=== PATIENT | male | born 1965 | race African-American/Black ===

== ENCOUNTER 2016-11-02 12:13 | Emergency (ER) | payer OTHER ==
[2016-11-02 12:22] VITALS: BP 116/75
[2016-11-02] MEDS ORDERED: TORADOL IM ONE (13:08)
[2016-11-02] MEDS ORDERED: BOOSTRIX IM ONE (13:11)
--- NOTE | 2016-11-02 13:59 | Cat Scan Report ---
CT scan of head without IV contrast: History: Injury to the head. Findings: Ventricles are normal in size and midline location. No evidence of acute ischemia, hemorrhage or mass. No extra-axial fluid collection. Normal brainstem and cerebellum. Normal sinuses and mastoid air cells. Impression: No acute intracranial abnormality.
--- NOTE | 2016-11-02 14:23 | Emergency Department Report ---
ED Head Injury/Laceration HPI - HPI Occurred When: Today Mechanism: Direct Blow Location: Parietal Pain: Moderate Tetanus Status: Not up to Date (given today) Symptoms: Loss of Consciousness: No, Nausea: No, Blurred Vision: No, Unusual Behavior: No, Headache: Yes, Swelling: No, Bruising: No, Break in Skin: Yes, Bleeding: Yes (mild bleeding) Other History: 51 y/o M presents with head injury about 1 hour ago. Pt states that he was watering the ground and he got up quickly and hit his head on a metal post. Pt is not UTD with his tetanus. Pt reports to a mild 5/10 in severity head pain/headache, denies any LOC, blurried vision, nausea, vomiting, chest pain, SOB. Pt has not tried anything for the symptoms at this time. Pt is otherwise healthy and only takes one baby aspirin daily. NKDA. ED General PMH - Past Medical History General Medical History: no medical history Surgical History: noncontributory, other (no no blood thinners per patient) - Family History Significant Family History: no pertinent family hx - Social History Smoking Status: Never Smoker ED Review of Systems ROS: Stated complaint: LACERTION ON TOP OF HEAD. Other details as noted in HPI Constitutional: denies: chills, fever Eyes: denies: eye pain, eye discharge, vision change ENT: denies: ear pain, throat pain Respiratory: denies: cough, shortness of breath, wheezing Cardiovascular: denies: chest pain, palpitations Skin: other (1.5 in laceration noted at the top of the head, mild bleeding at the site) Neurological: headache. denies: weakness, numbness, paresthesias, confusion, abnormal gait Head Inj w/lac Physical Exam - Exam General: Vital signs noted. No distress. Alert and acting appropriately. Head: Yes PERRL, No Hemotympanum, No Hematoma/Ecchymosis, No Epistaxis, No Stepoff/Deformity, No Abrasion, No Foreign Body Wound Length (cm): 4 Laceration Location: Parietal Chest, Abd, & Ext: Yes Clear Lung Sounds, Yes Regular Heart Rhythm, No Neck Pain , No Chest Injury/Pain, No Heart Murmur, No Abdominal Tenderness, No Back Tenderness, No Extremity Injury Neuroligical (Head Inj W/O Lac: Yes Normal Speech, Yes Normal Gait, No Lethargy , No Disorientation, No Focal Numbness, No Focal Weakness Exam: there is a 1.5 inch laceration noted at the parietal region of the forehead, it is superficial in nature. Mild bleeding noted at the site. Neurologic examination was unremarkable, EOMI, PERRLA. CN II to 12 intact. mild tenderness noted at the region of injury. No raccoon eyes or stahl signs noted. Pt was complaining of a mild headache at this time, CT head without contrast was ordered and was unremarkable. Pt's laceration was cleaned and dixed with dermabound. Pt was discahrged in stable condition with his . Keflex was called into patient's pharmacy and Ibuprofen was recommended for the pain. - Laceration /Wound Repair Head Wound Location: head Wound Length (cm): 4 Wound's Depth, Shape: superficial Wound Explored: no foreign body removed Irrigated w/ Saline (ccs): 1 Betadine Prep?: No Wound Debrided: moderate Wound Repaired With: Dermabond Sterile Dressing Applied?: No (due to location of the injury) ED Disposition Clinical Impression: Laceration of head Qualifiers: Encounter type: initial encounter Location of open wound of head: scalp Foreign body presence: without foreign body Qualified Code(s): S01.01XA - Laceration without foreign body of scalp, initial encounter Head injury Qualifiers: Encounter type: initial encounter Qualified Code(s): S09.90XA - Unspecified injury of head, initial encounter Disposition: - TO HOME OR SELFCARE Is pt being admited?: No Does the pt Need Aspirin: No Condition: Stable Instructions: Laceration (ED), Minor Head Injury (ED) Additional Instructions: If your pain continues you may take Ibuprofen as needed for the pain. Please be cautious with the dosing of Ibuprofen as you are already taking a daily baby aspirin. Please rest and ice the area. Please keep the area clean and dry for the next 48 hours. Then you may clean with warm water and soap. Please follow- up with PCP within 3-5 days. Please return to the ER immediately if you experience: increased CHUNG, fever, chills, blurried vision, nausea, or vomiting. Keflex 500mg PO BID for 10 days was called into patient's pharmacy, patient's informed. Referrals: PRIMARY CARE, [Primary Care Provider] - 3-5 Days [facility] [Outside] - 3-5 Days [facility] [Outside] - 3-5 Days Forms: Work/School Release Form(ED)
== END 2016-11-02 14:15 | disposition home or self-care (01) ==
LOC: ED 12:13
DX: S01.01XA Laceration without foreign body of scalp, initial encounter (principal); S09.90XA Unspecified injury of head, initial encounter; W22.8XXA Striking against or struck by other objects, initial encounter; Y93.89 Activity, other specified; Y92.89 Other specified places as the place of occurrence of the external cause; Y99.8 Other external cause status
CPT/HCPCS: 12002; 70450; 90471; 90715; 96372; 99283; J1885